=== PATIENT | male | born 1970 | race Caucasian/White ===

== ENCOUNTER 2016-07-25 23:36 | Emergency (ER) | payer BC ==
[2016-07-26 04:16] LABS: HEMOGLOBIN 15.1 gm/dl (14.0-17.5); RED BLOOD COUNT 4.83 M/UL (4.20-5.50); WHITE BLOOD COUNT 11.2 K/UL (4.5-11.0)
[2016-07-26 04:47] LABS: BUN/CREATININE RATIO 20 (0-10)
== END 2016-07-26 06:20 | disposition home or self-care (01) ==
LOC: ER1 23:36
PROVIDERS: Emergency Medicine
DX: R31.9 Hematuria, unspecified (principal); R10.9 Unspecified abdominal pain; R39.198 Other difficulties with micturition; R39.12 Poor urinary stream; I10 Essential (primary) hypertension; Z88.0 Allergy status to penicillin; Z79.899 Other long term (current) drug therapy
CPT/HCPCS: 36415; 80053; 81001; 83690; 85025; 96374; 96375; 99284; J2270; J2405; J7030

== ENCOUNTER 2016-09-10 00:14 | Emergency (ER) | payer BC | END 2016-09-10 05:40 | disposition home or self-care (01) | LOC: ER1 00:14 | DX: T78.40XA Allergy, unspecified, initial encounter (principal); X58.XXXA Exposure to other specified factors, initial encounter; Z88.0 Allergy status to penicillin | CPT/HCPCS: 36415; 96361; 96374; 96375; 99282; J1200; J2930 ==

== ENCOUNTER 2021-01-25 14:18 | Observation (INO) | payer BC ==
[~2021-01-25] VITALS: Ht 175.3 cm; Wt 149.2 kg
[~2021-01-25 14:18] MED LIST: ANTIVERT 25MG T25 MG PO; CLARITIN10 MG PO; CLEOCIN HCL300 MG PO; LIPITOR20 MG PO; LISINOPRIL-HCT1 EAC2 PO; LOPRESSOR 25 MG25 MG PO; MOBIC15 MG PO; VIIBRYD20 MG PO; Voltaren Gel 1% TOP; ZOFRAN4 MG PO
[2021-01-25 15:13] LABS: HEMOGLOBIN 15.9 gm/dl (14.0-17.5); RED BLOOD COUNT 5.69 M/UL (4.20-5.50); WHITE BLOOD COUNT 7.8 K/UL (4.5-11.0)
[2021-01-25 15:39] LABS: BUN/CREATININE RATIO 17 (0-10)
[2021-01-25] MEDS ORDERED: ESCITALOPRAM OX10 MG PO (18:00)
[2021-01-25] MEDS ORDERED: ASPIRIN81 MG PO (18:00)
[2021-01-25] MEDS ORDERED: SIMVASTATIN20 MG PO (18:00)
[2021-01-25] MEDS ORDERED: OMEPRAZOLE20 MG PO (18:00)
[2021-01-26 03:00] LABS: HEMOGLOBIN 14.7 gm/dl (14.0-17.5); RED BLOOD COUNT 5.2 M/UL (4.20-5.50); WHITE BLOOD COUNT 9.2 K/UL (4.5-11.0)
[2021-01-26 03:28] LABS: BUN/CREATININE RATIO 14 (0-10)
[2021-01-27 07:19] LABS: HEMOGLOBIN 16.1 gm/dl (14.0-17.5); RED BLOOD COUNT 5.51 M/UL (4.20-5.50)
[2021-01-27 07:36] LABS: BUN/CREATININE RATIO 14 (0-10)
[2021-01-27] MEDS ORDERED: NITROGLYCERIN0.4 MG SL (14:13)
[2021-01-27] MEDS ORDERED: ATORVASTATIN CA20 MG PO (14:13)
[2021-01-27] MEDS ORDERED: ISOSORBIDE MONO30 MG PO (14:13)
== END 2021-01-27 16:00 | disposition home or self-care (01) ==
LOC: ER1 14:18 → M/S 16:55 → CDU 16:55 → M/S 22:12
PROVIDERS: Physician Assistant Medical; Student in an Organized Health Care Education/Training Program; ADMIT Internal Medicine
DX: R07.89 Other chest pain (principal); R94.39 Abnormal result of other cardiovascular function study; I10 Essential (primary) hypertension; E78.5 Hyperlipidemia, unspecified; K21.9 Gastro-esophageal reflux disease without esophagitis; K56.609 Unspecified intestinal obstruction, unspecified as to partial versus complete obstruction; E66.01 Morbid (severe) obesity due to excess calories; Z68.42 Body mass index [BMI] 45.0-49.9, adult; Z20.822 Contact with and (suspected) exposure to COVID-19; Z79.899 Other long term (current) drug therapy; Z90.49 Acquired absence of other specified parts of digestive tract; Z96.698 Presence of other orthopedic joint implants; Z88.0 Allergy status to penicillin; Z79.82 Long term (current) use of aspirin
CPT/HCPCS: ECHO; 36415; 71045; 78452; 80048; 80053; 80061; 82550; 82553; 83036; 83735; 83874; 84484; 85025; 85027; 93005; 93017; 93306; 96374; 99285; A9502; G0378; J2405; J2785; U0002